=== PATIENT | male | born 1960 | race Caucasian/White ===

== ENCOUNTER 2021-09-21 07:25 | Day surgery (SDC) | payer BC ==
[~2021-09-21] VITALS: Ht 180.3 cm; Wt 78.0 kg
[~2021-09-21 07:25] MED LIST: LEVAQUIN 5500 MG/TA1 PO; NO HOME MEDICATIONS
[2021-09-21] MEDS ORDERED: ADULT MULTIVIT1 EACH PO (07:39)
[2021-09-21] MEDS ORDERED: OMEGA-31 SGL PO (07:39)
[2021-09-21 07:58] VITALS: BP 101/67; PULSE 70; TEMP 98.4
[2021-09-21 10:05] VITALS: BP 108/80; PULSE 54; TEMP 98
[2021-09-21 10:15] VITALS: BP 103/67; PULSE 51
[2021-09-21 10:30] VITALS: BP 110/56; PULSE 53
[2021-09-21 10:45] VITALS: BP 107/62; PULSE 55
--- NOTE | 2021-09-21 11:30 | NUR ---
1005 Pt returns from endo procedure via cart and RN assist to [facility] [place] [facility]. Pt ambulates from cart to recliner with RN assist. Monitors on and alarms set. Call light within reach. Report received from JESSICA Mcgill. Pt alert and oriented. Pt requests coffee and muffin. Pt denies any pain or nausea. 1015 Pt taking food and drink well. No complications noted. 1100 Discharge instructions given to pt and . All questions answered to their satisfaction. Handed to pt is discharge information. 1130 Pt transferred out of the hospital via wheelchair and this RN assist, to private vehicle driven by pt's .
== END 2021-09-21 11:30 | disposition home or self-care (01) ==
LOC: SDCO 07:25
DX: Z12.11 Encounter for screening for malignant neoplasm of colon (principal); D12.3 Benign neoplasm of transverse colon; K57.30 Diverticulosis of large intestine without perforation or abscess without bleeding; E78.5 Hyperlipidemia, unspecified; L57.8 Other skin changes due to chronic exposure to nonionizing radiation; F17.290 Nicotine dependence, other tobacco product, uncomplicated
CPT/HCPCS: J2704; J7030